=== PATIENT | male | born 1965 | race American Indian/Alaskan Native ===

== ENCOUNTER 2018-12-09 16:39 | Inpatient (IN) | payer SELFPAY ==
[2018-12-09] MEDS ORDERED: SODIUM CHLORIDE 0.9% 1000 ML 1,000 ML IV ONE (16:48)
--- NOTE | 2018-12-09 16:51 | Event Note ---
ED Screening Note Date of service: 12/09/18 Time: 16:47 ED Screening Note: 53 y o male presents with GI bleed that started this morning colonoscopy last , polyp removal Dr Diaz with [facility] This initial assessment/diagnostic orders/clinical plan/treatment(s) is/are subject to change based on patients health status, clinical progression and re- assessment by fellow clinical providers in the ED. Further treatment and workup at subsequent clinical providers discretion. Patient/guardian urged not to elope from the ED as their condition may be serious if not clinically assessed and managed. Initial orders include: labs main side eval
[2018-12-09 17:30] LABS: Basophils # (Auto) 0.1 K/mm3 (0.0-0.1); Basophils % (Auto) 0.8 % (0.0-1.8); Eosinophils # (Auto) 0.1 K/mm3 (0.0-0.4); Hematocrit 37.8 % (35.5-45.6); Hemoglobin 13.1 gm/dl (11.8-15.2); Lymphocytes % (Auto) 26.1 % (13.4-35.0); Mean Corpuscular HGB Conc 35 % (32-34); Mean Corpuscular Volume 94 fl (84-94); Monocytes # (Auto) 0.7 K/mm3 (0.0-0.8); Monocytes % (Auto) 9.2 % (0.0-7.3); Platelet Count 189 K/mm3 (140-440); Red Blood Count 4.01 M/mm3 (3.65-5.03); Red Cell Distribution Width 13.2 % (13.2-15.2)
[2018-12-09 17:40] LABS: INR 0.99 (0.87-1.13)
[2018-12-09 17:53] LABS: Alanine Aminotransferase 24 units/L (7-56); BUN/Creatinine Ratio 18; Blood Urea Nitrogen 16 mg/dL (9-20); Calcium 8.2 mg/dL (8.4-10.2); Hemolysis Index 9
--- NOTE | 2018-12-09 18:01 | Emergency Department Report ---
ED GI Bleed HPI - General Chief complaint: GI Bleed Stated complaint: BLOODY STOOL Time Seen by Provider: 12/09/18 16:46 Source: patient Mode of arrival: Ambulatory Limitations: No Limitations - History of Present Illness Initial comments: blood in stool x 1 day, had colonoscopy on 12/04. Patient was being seen at his GI doctor's office, when they noticed that he was tachycardic, he was then sent to ED for further evaluation. He complains of bloody stool today times 6. MD complaint: gross hematochezia -: Gradual Radiation: none Severity scale (0 -10): 0 Consistency: intermittent - Related Data Home Medications Medication Instructions Recorded Confirmed Last Taken Multivit-Minerals/FA/Lycopene [One 1 each PO DAILY 12/09/18 12/09/18 Unknown Daily Men's Health Tablet] [place]-3 Fatty Acids/Fish Oil [Fish 1 each PO DAILY 12/09/18 12/09/18 Unknown Oil] Allergies Allergy/AdvReac Type Severity Reaction Status Date / Time No Known Allergies Allergy Unverified 12/09/18 16:41 ED Review of Systems ROS: Stated complaint: BLOODY STOOL Other details as noted in HPI Comment: All other systems reviewed and negative Respiratory: denies: cough Cardiovascular: denies: chest pain, palpitations Endocrine: denies: see HPI Gastrointestinal: hematochezia Genitourinary: denies: urgency ED Past Medical Hx - Past Medical History Previous Medical History?: No - Surgical History Past Surgical History?: Yes Additional Surgical History: colonoscopy - Social History Smoking Status: Never Smoker Substance Use Type: None - Medications Home Medications: Home Medications Medication Instructions Recorded Confirmed Last Taken Type Multivit-Minerals/FA/Lycopene [One 1 each PO DAILY 12/09/18 12/09/18 Unknown History Daily Men's Health Tablet] [place]-3 Fatty Acids/Fish Oil [Fish 1 each PO DAILY 12/09/18 12/09/18 Unknown History Oil] ED Physical Exam - General Limitations: No Limitations General appearance: alert, in no apparent distress - Head Head exam: Present: atraumatic, normocephalic - Eye Eye exam: Present: normal appearance, PERRL, EOMI Pupils: Present: normal accommodation - ENT ENT exam: Present: normal exam, normal orophraynx, mucous membranes moist - Neck Neck exam: Present: normal inspection - Respiratory Respiratory exam: Present: normal lung sounds bilaterally - Cardiovascular Cardiovascular Exam: Present: regular rate, normal rhythm - GI/Abdominal GI/Abdominal exam: Present: soft, normal bowel sounds - Rectal Rectal exam: Present: deferred - Back Exam Back exam: Present: normal inspection - Neurological Exam Neurological exam: Present: alert, oriented X3, CN II-XII intact - Psychiatric Psychiatric exam: Present: normal affect - Skin Skin exam: Present: warm ED Course Vital Signs 12/09/18 12/09/18 12/09/18 16:48 17:13 17:15 Temperature 98.7 F Pulse Rate 112 H 95 H Respiratory 16 16 12 Rate Blood Pressure 130/92 Blood Pressure 124/87 [Left] O2 Sat by Pulse 97 96 96 Oximetry 12/09/18 12/09/18 12/09/18 17:19 17:34 17:46 Temperature 98.6 F Pulse Rate 76 97 H 91 H Respiratory 17 17 23 Rate Blood Pressure Blood Pressure 131/87 [Left] O2 Sat by Pulse 96 98 96 Oximetry 12/09/18 12/09/18 12/09/18 18:00 18:16 18:31 Temperature Pulse Rate 91 H 89 81 Respiratory 15 18 16 Rate Blood Pressure Blood Pressure [Left] O2 Sat by Pulse 98 95 97 Oximetry 12/09/18 12/09/18 18:45 20:34 Temperature Pulse Rate 81 81 Respiratory 11 L 14 Rate Blood Pressure Blood Pressure 110/71 [Left] O2 Sat by Pulse 97 98 Oximetry ED Medical Decision Making - Lab Data Result diagrams: 12/09/18 17:07 12/09/18 17:07 Critical care attestation.: If time is entered above; I have spent that time in minutes in the direct care of this critically ill patient, excluding procedure time. ED Disposition Clinical Impression: Rectal bleeding Disposition: DC-01 TO HOME OR SELFCARE Is pt being admited?: Yes Does the pt Need Aspirin: No Condition: Stable Forms: Accompanied Note
--- NOTE | 2018-12-09 18:10 | Cat Scan Report ---
CT abdomen pelvis wo con INDICATION: GI Bleed. TECHNIQUE: All CT scans at this location are performed using the following dose modulation technique: Automated exposure control. CONTRAST: None. COMPARISON: None available. CT abdomen: The parenchymal organs are unremarkable in appearance other than calcified splenic granul omas. Negative for abdominal mass, fluid or inflammation. The bowel is not dilated or thickened. A fat-containing umbilical hernia is small. CT PELVIS: Negative for distal ureteral stone, pelvic fluid collection or inflammation. A few noninfl dari sigmoid diverticula are present. IMPRESSION: Mild noninflamed colonic diverticulosis. Signer Name: Anderson Stokes MD Signed: 12/09/2018 6:05 PM Workstation Name: [id number]
--- NOTE | 2018-12-09 18:53 | Gastroenterology Consultation ---
History of Present Illness - Reason for Consult Consult date: 12/09/18 gi bleed Requesting physician: ARNULFO THOMAS - History of Present Illness This is a 53 yo male with recent colonoscopy with polypectomy last week sent from GI clinic for GI bleed. He underwent screening colonoscopy showing 1.5 cm polyp in the cecum and removed with saline lifted snare polypectomy. He did well after the procedure without any abdominal pain, bleeding until this morning around 10 am, he began to have multiple loose bright red bloody stools. He reports about 6 episodes with last one around 5 pm. He went to see Dr. Lemus in the clinic and sent to the ED. Noted to be tachycardic in the clinic. Denies any abdominal pain, nausea/vomiting, or fever. He had CT a/p without contrast showing mild diverticulosis but no signs of bleeding or diverticulitis. Hgb at 13 and HD stable. Denies any anticoagulation or NSAID use. Medication list reviewed. Past History Past Medical History: hypertension Past Surgical History: Other (colonoscopy with polypectomy) Social history: lives with family Family history: other (no h/o CRC) Medications and Allergies Allergies Allergy/AdvReac Type Severity Reaction Status Date / Time No Known Allergies Allergy Unverified 12/09/18 16:41 Review of Systems - Review of Systems All systems: negative Constitutional: no weight loss, no weight gain Respiratory: no cough Gastrointestinal: diarrhea, hematochezia, no abdominal pain, no nausea, no vomiting Neurological: no weakness Exam - Constitutional Vital Signs: Temp Pulse Resp BP Pulse Ox 98.6 F 76 17 131/87 96 12/09/18 17:19 12/09/18 17:19 12/09/18 17:19 12/09/18 17:19 12/09/18 17:19 General appearance: no acute distress, well-nourished - EENT ENT: hearing intact - Neck Neck: supple - Respiratory Respiratory effort: normal - Cardiovascular Rhythm: regular Heart Sounds: Present: S1 & S2 - Gastrointestinal General gastrointestinal: Present: soft, non-tender, non-distended, normal bowel sounds - Integumentary Integumentary: Present: clear, warm - Labs CBC & Chem 7: 12/09/18 17:07 12/09/18 17:07 Lab Results: Laboratory Results - last 24 hr 12/09/18 12/09/18 12/09/18 17:07 17:07 17:07 WBC 7.7 RBC 4.01 Hgb 13.1 Hct 37.8 MCV 94 MCH 33 H MCHC 35 H RDW 13.2 Plt Count 189 Lymph % (Auto) 26.1 [place] % (Auto) 9.2 H Eos % (Auto) 1.0 Baso % (Auto) 0.8 Lymph # 2.0 [place] # 0.7 Eos # 0.1 Baso # 0.1 Seg Neutrophils % 62.9 Seg Neutrophils # 4.9 PT INR APTT Sodium 138 Potassium 3.8 Chloride 101.8 Carbon Dioxide 22 Anion Gap 18 BUN 16 Creatinine 0.9 Estimated GFR > 60 BUN/Creatinine Ratio 18 Glucose 113 H Lactic Acid 1.40 Calcium 8.2 L Total Bilirubin 0.90 AST 19 ALT 24 Alkaline Phosphatase 56 Total Protein 6.9 Albumin 4.0 Albumin/Globulin Ratio 1.4 Blood Type Antibody Screen 12/09/18 12/09/18 17:07 17:08 WBC RBC Hgb Hct MCV MCH MCHC RDW Plt Count Lymph % (Auto) [place] % (Auto) Eos % (Auto) Baso % (Auto) Lymph # [place] # Eos # Baso # Seg Neutrophils % Seg Neutrophils # PT 12.8 INR 0.99 APTT 27.0 Sodium Potassium Chloride Carbon Dioxide Anion Gap BUN Creatinine Estimated GFR BUN/Creatinine Ratio Glucose Lactic Acid Calcium Total Bilirubin AST ALT Alkaline Phosphatase Total Protein Albumin Albumin/Globulin Ratio Blood Type O POSITIVE Antibody Screen Negative Assessment and Plan This is a 53 yo male with recent colonoscopy with polypectomy last week sent from GI clinic for GI bleed. He underwent screening colonoscopy showing 1.5 cm polyp in the cecum and removed with saline lifted snare polypectomy. # Hematochezia - likely lower GI bleeding with source ddx including post polypectomy bleed vs diverticular bleed. - HD stable. - CT a/p without contrast showing diverticulosis. - Hgb at 13. Rec - will plan for colonoscopy tomorrow. - monitor H/H. - NPO.
[2018-12-09] MEDS ORDERED: POLYETHYLENE GLYCOL/ELECT SOLN 4000 ML PO ONE (19:55)
--- NOTE | 2018-12-09 21:30 | History and Physical Report ---
History of Present Illness Date of examination: 12/09/18 History of present illness: 53 year old man with history of hypertension came to the emergency room with complaints with rectal bleed today, a total of 6 episodes. He is s/p polypectomy last week . No abdominal pain, fever Review Of Systems: Constitutional: no weight loss, fever, chills Ears, eyes, nose, mouth and throat: no nasal congestion, no nasal discharge, no sinus pressure, blurry vision, diplopia Neck: No neck pain or rigidity. Cardiovascular: No palpitations, chest pain Respiratory: No shortness of breath, cough Gastrointestinal: No abdominal pain Genitourinary : no dysuria, frequency , hematuria Musculoskeletal: no muscle ache , joint pain Integumentary: no rash, no pruritis Neurological: no parathesias, focal weakness Endocrine: no cold or heat intolerance, no polyuria or polydipsia Hematologic/Lymphatic: no easy bruising, no easy bleeding, no gland swelling Allergic/Immunologic: no urticaria, no angioedema. PAST MEDICAL HISTORY:Hypertension PAST SURGICAL HISTORY:None FAMILY HISTORY:hypertension, diabetes SOCIAL HISTORY: Denies tobacco, drugs, alcohol Past History Past Medical History: hypertension Past Surgical History: Other (colonoscopy with polypectomy) Social history: lives with family Family history: other (no h/o CRC) Medications and Allergies Allergies Allergy/AdvReac Type Severity Reaction Status Date / Time No Known Allergies Allergy Unverified 12/09/18 16:41 Home Medications Medication Instructions Recorded Confirmed Last Taken Type Multivit-Minerals/FA/Lycopene [One 1 each PO DAILY 12/09/18 12/09/18 Unknown History Daily GupShups Promuc Tablet] [place]-3 Fatty Acids/Fish Oil [Fish 1 each PO DAILY 12/09/18 12/09/18 Unknown History Oil] Exam - Physical Exam Narrative exam: General Apperance: The patient sitting in bed no acute distress HEENT: Normocephalic, atraumatic. Pupils equally round and reactive to light, extraocular movement intact, and no sclericterus or JVD or thyromegaly or nodule. Neck supple, no carotid bruit, mucous membranes moist, no exudate or erythema Heart: S1-S2, regular is rhythm Lungs: Clear to auscultation bilaterally, breathing comfortable Abdomen: Positive bowel sounds, soft, nontender, nondistended, no organomegaly Extremities: No edema cyanosis clubbing Skin: no rash, nodule, warm and dry Neuro:CN 2 -12 intact, motor/sensory intact, speech is fluent - Constitutional Vitals: Temp Pulse Resp BP Pulse Ox 98.6 F 81 14 110/71 98 12/09/18 17:19 12/09/18 20:34 12/09/18 20:34 12/09/18 20:34 12/09/18 20:34 Results - Labs CBC & Chem 7: 12/09/18 17:07 12/09/18 17:07 Labs: Abnormal lab results 12/09/18 12/09/18 Range/Units 17:07 17:07 MCH 33 H (28-32) pg MCHC 35 H (32-34) % [place] % (Auto) 9.2 H (0.0-7.3) % Glucose 113 H (75-100) mg/dL Calcium 8.2 L (8.4-10.2) mg/dL - Imaging and Cardiology CT scan - abdomen: report reviewed CT scan - pelvis: report reviewed Assessment and Plan assessment Lower GI Bleed Hypertension Plan Admit to medicine Start IV fluid, check serial hemoglobin GI was consulted to see the patient DVT prophalaxis
[2018-12-09] MEDS ORDERED: ONDANSETRON 4 MG/2 ML INJ IV PRN (22:12)
[2018-12-09] MEDS ORDERED: MORPHINE 2 MG/1 ML INJ IV PRN (22:12)
[2018-12-09] MEDS ORDERED: ACETAMINOPHEN 325 MG TAB PO PRN (22:12)
[2018-12-09 23:21] LABS: Hematocrit 36.3 % (35.5-45.6); Hemoglobin 12.5 gm/dl (11.8-15.2)
[2018-12-10] MEDS: SODIUM CHLORIDE 0.9% 1000 ML 1,000 ML IV SCH ×3 (01:06→12:06)
[2018-12-10 05:25] LABS: Basophils % (Auto) 0.4 % (0.0-1.8); Eosinophils # (Auto) 0.1 K/mm3 (0.0-0.4); Eosinophils % (Auto) 1.6 % (0.0-4.3); Hematocrit 32.7 % (35.5-45.6); Hemoglobin 11.3 gm/dl (11.8-15.2); Lymphocytes # (Auto) 2.3 K/mm3 (1.2-5.4); Lymphocytes % (Auto) 32.3 % (13.4-35.0); Mean Corpuscular HGB Conc 34 % (32-34); Mean Corpuscular Volume 95 fl (84-94); Monocytes # (Auto) 0.7 K/mm3 (0.0-0.8); Monocytes % (Auto) 10.3 % (0.0-7.3); Platelet Count 145 K/mm3 (140-440); Red Blood Count 3.43 M/mm3 (3.65-5.03); Red Cell Distribution Width 13.4 % (13.2-15.2)
[2018-12-10 06:21] LABS: BUN/Creatinine Ratio 17; Blood Urea Nitrogen 15 mg/dL (9-20); Calcium 7.9 mg/dL (8.4-10.2); Hemolysis Index 8
[2018-12-10 10:23] LABS: Hemoglobin 11.8 gm/dl (11.8-15.2)
--- NOTE | 2018-12-10 12:26 | Anesthesia Day of Surgery ---
Anesthesia Day of Surgery - Day of Surgery Patient Examined: Yes Patient H&P Reviewed: Yes Patient is NPO: Yes
--- NOTE | 2018-12-10 12:28 | Anesthesia Consultation ---
Anesthesia Consult and Med Hx Date of service: 12/10/18 - Airway Anesthetic Teeth Evaluation: Good ROM Head & Neck: Adequate Mental/Hyoid Distance: Adequate Mallampati Class: Class II Intubation Access Assessment: Good - Pulmonary Exam CTA: Yes - Cardiac Exam Cardiac Exam: RRR - Pre-Operative Health Status ASA Pre-Surgery Classification: ASA1, Emergency Proposed Anesthetic Plan: MAC - Additional Comments Anesthesia Medical History Comments: Patient recently (a week ago) had colonoscopy, here for blood in the stool.
[2018-12-10] MEDS ORDERED: PROPOFOL 200 MG/20 ML VIAL IV ONE ×2 (12:59)
[2018-12-10] MEDS ORDERED: MIDAZOLAM 2 MG/2 ML INJ ONE (13:00)
[2018-12-10] MEDS ORDERED: WATER FOR IRRIG STERILE 250 ML BOTTLE IR ONE (13:04)
[2018-12-10] MEDS ORDERED: EPINEPHrine 1:10,000 1 MG/10 ML SYRINGE ONE (13:09)
[2018-12-10] MEDS ORDERED: EPINEPHrine 1:10,000 1 MG/10 ML SYRINGE IV ONE (13:15)
--- NOTE | 2018-12-10 13:27 | Operative Report ---
Operative Report Operative Report: DOS: 12/10/18 Endoscopist: David Joel MD COLONOSCOPY REPORT PREOPERATIVE AND POSTOPERATIVE DIAGNOSIS: GI Bleed DESCRIPTION OF PROCEDURE: The colonoscope was passed to the cecum identified by the appendiceal orifice and ICV. Scope was carefully withdrawn. Retroflexion was performed in the rectum. At the end of procedure, the scope was cleaned using normal technique. Vital signs monitored continuously throughout. SEDATION: Provided by Anesthesiology Services. Quality of the prep was fair COMPLICATIONS: None. ESTIMATED BLOOD LOSS: minimal FINDINGS: * In the cecum, there was a small nonbleeding ulcer with red spot but no visible vessel in the periappendiceal area. No signs of active bleeding. Likely from the previous polypectomy. Epinepherine was injected and three clips were placed to prevent bleeding. * Rest of the colon revealed normal findings without any other source of ble eding. * Small nonbleeding internal hemorrhoids seen on retroflexion view. RECOMMENDATIONS: 1. Resume clear liquids and advance as tolerated. 2. Monitor H/H. 3. If H/H stable tomorrow and no signs of recurrent bleeding, ok for discharge tomorrow.
--- NOTE | 2018-12-10 15:52 | Post Anesthesia Evaluation ---
- Post Anesthesia Evaluation Patient Participated: Yes Airway Patent: Yes Stable Respiratory Function: Yes Nausea/Vomiting: No Temp > 96.8F: Yes Pain Manageable: Yes Adequeate Hydration: Yes Anesthesia Complications: No Block Receding Appropriately: Not Applicable Patient on Ventilator: No
--- NOTE | 2018-12-10 16:05 | Progress Note ---
Assessment and Plan Lower GI Bleed - s/p clonoloscopy today :In the cecum, there was a small nonbleeding ulcer with red spot but no visible vessel in the periappendiceal area. - h/h stable - monitor o/n , if h/h stable then plan to d/c tomorrow - advance diet as tolerated HTN, BP stable, cont to monitor Obesity, dietary recommendation when medically stable DVT Px, SCD Brief History: 53 year old man with history of hypertension came to the emergency room with complaints with rectal bleed - a total of 6 episodes. He is s/p polypectomy last week . h/h stable, CT abdomen/pelvis showed diverticulosis. The patient was admitted for further evaluation and management. Ct abdoemn/pelvis: Mild noninflamed colonic diverticulosis. Physical exam: General Apperance: The patient sitting in bed no acute distress HEENT: Normocephalic, atraumatic. Pupils equally round and reactive to light, extraocular movement intact, and no sclericterus or JVD or thyromegaly or nodule. Neck supple, no carotid bruit, mucous membranes moist, no exudate or erythema Heart: S1-S2, regular is rhythm Lungs: Clear to auscultation bilaterally, breathing comfortable Abdomen: Positive bowel sounds, soft, nontender, nondistended, no organomegaly Extremities: No edema cyanosis clubbing Skin: no rash, nodule, warm and dry Neuro:CN 2 -12 intact, motor/sensory intact, speech is fluent Subjective Date of service: 12/10/18 Interval history: Patient seen and examined. Medical records and medication list reviewed. No acute event overnight noted by the RN. Patient denies any chest pain or difficulty breathing. Patient denies any further rectal bleeding Discussed plan of care at bedside with patient. Objective - Constitutional Vitals: Vital Signs - 12hr 12/10/18 12/10/18 12/10/18 08:47 11:56 11:58 Temperature 97.7 F 98.0 F 98.0 F Pulse Rate 64 66 66 Respiratory 14 13 13 Rate Blood Pressure 113/73 115/66 115/66 O2 Sat by Pulse 97 98 98 Oximetry 12/10/18 12/10/18 12/10/18 13:25 13:30 13:40 Temperature 97.5 F L Pulse Rate 68 Respiratory 17 19 18 Rate Blood Pressure 119/64 117/76 123/77 O2 Sat by Pulse 95 95 96 Oximetry 12/10/18 13:50 Temperature Pulse Rate Respiratory 15 Rate Blood Pressure 128/72 O2 Sat by Pulse 97 Oximetry - Labs CBC & Chem 7: 12/10/18 10:12 12/10/18 04:37 Labs: Abnormal lab results 12/09/18 12/09/18 12/10/18 Range/Units 17:07 17:07 04:37 RBC 3.43 L (3.65-5.03) M/mm3 Hgb 11.3 L (11.8-15.2) gm/dl Hct 32.7 L (35.5-45.6) % MCV 95 H (84-94) fl MCH 33 H 33 H (28-32) pg MCHC 35 H (32-34) % [place] % (Auto) 9.2 H 10.3 H (0.0-7.3) % Glucose 113 H (75-100) mg/dL Calcium 8.2 L (8.4-10.2) mg/dL 12/10/18 12/10/18 Range/Units 04:37 10:12 RBC (3.65-5.03) M/mm3 Hgb (11.8-15.2) gm/dl Hct 34.0 L (35.5-45.6) % MCV (84-94) fl MCH (28-32) pg MCHC (32-34) % [place] % (Auto) (0.0-7.3) % Glucose 114 H (75-100) mg/dL Calcium 7.9 L (8.4-10.2) mg/dL
[2018-12-10 20:07] LABS: Hematocrit 32.3 % (35.5-45.6)
[2018-12-11 05:18] LABS: Hematocrit 30.6 % (35.5-45.6); Hemoglobin 10.7 gm/dl (11.8-15.2)
[2018-12-11] MEDS: SODIUM CHLORIDE 0.9% 1000 ML 1,000 ML IV SCH (06:22)
[2018-12-11 08:35] VITALS: BP 129/74
--- NOTE | 2018-12-11 08:59 | Gastroenterology Progress Note ---
Assessment and Plan This is a 53 yo male with recent colonoscopy with polypectomy last week sent from GI clinic for GI bleed. He underwent screening colonoscopy showing 1.5 cm polyp in the cecum and removed with saline lifted snare polypectomy. # Hematochezia - due to cecal ulcer from previous polypectomy as seen on colonoscopy. No active bleeding at the time. Treated with epi and endoclips. - no overt signs of recurrent bleeding. - H/H stable. Rec - advance diet. - ok for discharge per GI standpoint. Follow up in GI clinic with Dr. Lemus. - will sign off. - avoid NSAIDs. Subjective Date of service: 12/11/18 Interval history: s/p colonoscopy showing cecal ulcer from post polypectomy and treated with epi and endoclips. Had BM without any blood yesterday. No abdominal pain. Objective - Constitutional Vitals: Temp Pulse Resp BP Pulse Ox 98.1 F 66 18 129/74 97 12/11/18 08:33 12/11/18 08:33 12/11/18 08:33 12/11/18 08:33 12/11/18 08:33 General appearance: no acute distress - EENT ENT: hearing intact - Neck Neck: supple - Respiratory Respiratory effort: normal - Cardiovascular Rhythm: regular Heart Sounds: Present: S1 & S2 - Gastrointestinal General gastrointestinal: Present: soft, non-tender, non-distended, normal bowel sounds - Integumentary Integumentary: Present: clear, warm - Neurologic Neurological: alert and oriented x3 - Labs CBC & Chem 7: 12/11/18 04:55 12/10/18 04:37 Labs: Laboratory Results - last 24 hr 12/10/18 12/10/18 12/11/18 10:12 19:55 04:55 Hgb 11.8 11.0 L 10.7 L Hct 34.0 L 32.3 L 30.6 L
--- NOTE | 2018-12-11 11:54 | Discharge Summary ---
Providers - Providers Date of Admission: 12/09/18 21:30 Date of discharge: 12/11/18 Attending physician: SHAHZAD CAPUTO 12/09/18 22:14 Consult to Physician [CONS] Routine Comment: Consulting Provider: NANDO HANNA Physician Instructions: Reason For Exam: gib Primary care physician: YAYA WOODS Hospitalization Condition: Stable Hospital course: 53 year old man with history of hypertension came to the emergency room with complaints with rectal bleed - a total of 6 episodes. He is s/p polypectomy last week . h/h stable, CT abdomen/pelvis showed diverticulosis. The patient was admitted for further evaluation and management. Ct abdoemn/pelvis: Mild noninflamed colonic diverticulosis. Discharge diagnosis and Mx; Lower GI Bleed - s/p clonoloscopy: In the cecum, there was a small nonbleeding ulcer with red spot but no visible vessel in the periappendiceal area. due to cecal ulcer from previous polypectomy as seen on colonoscopy. No active bleeding at the time. Treated with epi and endoclips. - no overt signs of recurrent bleeding. - H/H stable. - h/h stable - advanced diet as tolerated - will f/u with GI outpt - discharged home in stable condition HTN, BP stable, cont to monitor Obesity, dietary recommendation DVT Px, SCD Physical exam: General Apperance: The patient sitting in bed no acute distress HEENT: Normocephalic, atraumatic. Pupils equally round and reactive to light, extraocular movement intact, and no sclericterus or JVD or thyromegaly or nodule. Neck supple, no carotid bruit, mucous membranes moist, no exudate or erythema Heart: S1-S2, regular is rhythm Lungs: Clear to auscultation bilaterally, breathing comfortable Abdomen: Positive bowel sounds, soft, nontender, nondistended, no organomegaly Extremities: No edema cyanosis clubbing Skin: no rash, nodule, warm and dry Neuro:CN 2 -12 intact, motor/sensory intact, speech is fluent Disposition: DC-01 TO HOME OR SELFCARE Time spent for discharge: 34 minutes Core Measure Documentation - Palliative Care Palliative Care/ Comfort Measures: Not Applicable - Core Measures Any of the following diagnoses?: none Exam - Constitutional Vitals: Temp Pulse Resp BP Pulse Ox 98.1 F 66 18 129/74 97 12/11/18 08:33 12/11/18 08:33 12/11/18 08:33 12/11/18 08:33 12/11/18 08:33 Plan Activity: advance as tolerated Weight Bearing Status: Weight Bear as Tolerated Diet: low fat, low salt Follow up with: ADITHYA FLOWERMOBILE MD ANA CRISTINA [Referring] - 3-5 Days FARZANA WALKER MD [Staff Physician] - 7 Days Forms: Accompanied Note
== END 2018-12-11 13:13 | disposition home or self-care (01) | DRG 394 ==
LOC: ED 16:39 → 4A 21:30
PROVIDERS: ADMIT Internal Medicine; ATTEND Internal Medicine
PROC: 0W3P8ZZ Control Bleeding in Gastrointestinal Tract, Via Natural or Artificial Opening Endoscopic (ICD-10-PCS; principal; 2018-12-10)
PROC: 3E0H8GC Introduction of Other Therapeutic Substance into Lower GI, Via Natural or Artificial Opening Endoscopic (ICD-10-PCS; 2018-12-10)
DX: K63.3 Ulcer of intestine (principal); D62 Acute posthemorrhagic anemia; I10 Essential (primary) hypertension; K57.90 Diverticulosis of intestine, part unspecified, without perforation or abscess without bleeding; E66.9 Obesity, unspecified; Z68.32 Body mass index [BMI] 32.0-32.9, adult; Z71.3 Dietary counseling and surveillance; Z82.49 Family history of ischemic heart disease and other diseases of the circulatory system; Z83.3 Family history of diabetes mellitus; Z79.899 Other long term (current) drug therapy
CPT/HCPCS: 36415; 74176; 80048; 80053; 82140; 85014; 85018; 85025; 85610; 85730; 86850; 86900; 86901; G0378; J0171; J2250; J2704; J7030